=== PATIENT | female | born 1995 | race Hispanic/Latino ===

== ENCOUNTER 2019-07-04 08:48 | Emergency (ER) | payer MEDICAID, OTHER | END 2019-07-04 09:38 | disposition home or self-care (01) | LOC: EDH 08:48 | DX: J06.9 Acute upper respiratory infection, unspecified (principal) | CPT/HCPCS: 99281 ==

== ENCOUNTER 2020-04-13 10:39 | Emergency (ER) | payer SELFPAY ==
[2020-04-13] MEDS ORDERED: AMOXICILLIN/POTASSIUM CLAV 875-125 TABLET PO ONE (12:00)
[2020-04-13] MEDS ORDERED: ACETAMINOPHEN EXTRA STRENGTH 500 MG TABLET ONE (12:06)
[2020-04-13] MEDS ORDERED: IBUPROFEN 600 MG TABLET ONE (12:06)
== END 2020-04-13 13:41 | disposition home or self-care (01) ==
LOC: EDH 10:39
DX: K02.9 Dental caries, unspecified (principal); Z20.828 Contact with and (suspected) exposure to other viral communicable diseases; Z72.0 Tobacco use
CPT/HCPCS: 87426; 99284; U0003

== ENCOUNTER 2022-06-01 02:25 | Emergency (ER) | payer OTHER ==
[~2022-06-01] VITALS: Ht 157.5 cm; Wt 101.2 kg
[2022-06-01] MEDS ORDERED: IBUP-1493 PO (02:54)
[2022-06-01] MEDS ORDERED: AMOX1TAB16 PO (02:54)
[2022-06-01] MEDS ORDERED: SULF1TAB42 PO (02:54)
[2022-06-01] MEDS ORDERED: IBUPROFEN 800 MG TAB PO ONE (03:00)
[2022-06-01] MEDS ORDERED: DIPH,PERTUSS(ACELL),TET VAC/PF 0.5 ML VIAL IM ONE (03:00)
[2022-06-01] MEDS ORDERED: AMOX/CLAV 875/125MG TAB PO ONE (03:00)
[2022-06-01 03:18] VITALS: BP 122/68
== END 2022-06-01 03:18 | disposition home or self-care (01) ==
LOC: EDH 02:25
DX: L03.114 Cellulitis of left upper limb (principal); F17.200 Nicotine dependence, unspecified, uncomplicated; Z90.49 Acquired absence of other specified parts of digestive tract